=== PATIENT | male | born 1955 | race Caucasian/White ===

== ENCOUNTER 2023-06-21 14:31 | Outpatient (OUT) | payer SELFPAY | END 2023-06-21 14:32 | disposition home or self-care (01) | LOC: PST 14:31 | PROVIDERS: Visit Provider Urology | DX: Z01.818 Encounter for other preprocedural examination (principal); R97.20 Elevated prostate specific antigen [PSA] ==

== ENCOUNTER 2023-06-22 11:59 | Day surgery (SDC) | payer OTHER, SELFPAY ==
[2023-06-22] MEDS: LIDOCAINE 2% JELLY 20 ML UR (12:58)
[2023-06-22 13:01] VITALS: BP 112/66; PULSE 60; RESP 16; O2SAT 98
[2023-06-22] MEDS: LIDOCAINE HCL 1% PF 20 MG/2 ML VIAL 20 ML INJ (13:02)
[2023-06-22] MEDS: BACITRACIN OINTMENT 28.4 GM TUBE 1 APPLIC TOPICAL (13:07)
[2023-06-22 13:14] VITALS: BP 122/73; PULSE 69; RESP 18; O2SAT 98
--- NOTE | 2023-06-22 13:25 | PM.URSON ---
Urology Surgery Operative Note Operative Note Procedure Date: 06/22/23 Time Out Performed: yes Pre-op Diagnosis: 1. Elevated PSA 2. Atypical small acinar proliferation Post-op Diagnosis: same as pre-op Procedures performed: 1. Ultrasound for needle prostate biopsy, transperineal approach 2. Transrectal ultrasound of prostate and seminal vesicles 3. Nerve block of prostate Anesthesia: local Primary Surgeon: Sera Kennedy Complications: none Estimated blood loss (mL): 1 Findings: Left anterior medial hypoechoic area (4 core needle biopsies). Left posterior medial (6 core needle bx, 3 were shorter). JOE benign, mildly enlarged, non tender, no nodules. Left mid gland small cyst Large intravesical median lobe, SV wnl. Specimens: 1. Right posterior medial (2 cores) 2. Right posterior lateral (2 cores) 3. Right base (2 cores) 4. Right anterior lateral (2 cores) 5. Right anterior medial (2 cores) 6. Left anterior medial (4 cores) 7. Left anterior lateral (2 cores) 8. Left base (2 cores) 9. Left posterior lateral (2 cores) 10. Left posterior medial (6 cores- 3 short) Indications for Procedures: 68 year old male with history of elevated PSA 6.3, 18% free on 04/12/23, PSA density 0.11. MP-MRI prostate 05/24/23 showed prior prostatitis, no concerning lesions. Prostate volume 59 ml. Prior TRUS prostate biopsy by Dr. Rodriguez 08/20/21 showed LANETTE x1 core, LLM. After discussion of risks/benefits of management options and biopsy approaches, he elected to proceed with transperineal prostate biopsy under local. Risks were discussed to include but not limited to bleeding, pain, infection, damage to surrounding structures, hematuria, difficulty urinating, ecchymosis, swelling, injury from positioning, and need for additional procedures. Detailed description of Procedure: After informed consent was obtained, the patient was brought to the operating suite and transferred onto the operating table in supine position. Sequential compression devices were placed on bilateral lower extremities. He received the appropriate dose of oral antibiotics. He was positioned in the dorsal lithotomy position with scrotum secured out of the perineum with tape, and the appropriate pressure points padded, prepped and draped in the usual fashion for this procedure. An operative timeout was performed confirming the patient's identity, procedure and safety checks. A digital rectal exam was performed noting findings as above. Lidocaine gel was inserted per rectum. A well lubricated biplane transrectal ultrasound probe was inserted into the rectum and the prostate was aligned. The gland was visualized fully in axial and sagittal views to allow for identification of anatomy and location of the urethra as noted in findings. The Precision Point device was placed on the ultrasound probe for transperineal approach. The skin followed by periprostatic local anesthetic was delivered, 20 cc total 1% lidocaine plain, for periprostatic block. Two biopsies were obtained in a systematic fashion from 10 regions of the prostate including the medial and lateral aspects of the anterior and posterior prostate, as well as base of the right and left lobes. Additional biopsies were taken from prior LANETTE region. The ultrasound probe was removed and the perineum was cleaned, pressure applied achieving adequate hemostasis and dressed with antibiotic ointment, fluffs and scrotal support. The patient tolerated the procedure well and was sent to PACU in stable condition. Plan: Void prior to discharge home. Follow up in 1-2 weeks for pathology review. Other Provider present: No Post Operative care instructions: see dc instructions Attending Doc Confirm Attending Attestation: Yes
--- NOTE | 2023-06-22 13:39 | PC.NURSE ---
pt voids without difficulty at 1330.
--- OUTSIDE RECORDS SUMMARY | 2023-08-02 14:09 | XMS_ITS | CCD ---
Author Name Unknown Address [address] [place] [address] Organization [facility] Care Team Providers Care Healthcare Financial Analyst Name Role Phone TRUNG CARLIN Primary Care Physician [phone] Trung Carlin Primary Care Unavailable Sera Kennedy Attending Unavailable Sera Kennedy Admitting Unavailable Sera Kennedy Attending Unavailable Sera Kennedy Attending Unavailable Sera Kennedy Attending Unavailable Sera Kennedy Attending Unavailable Pedro Pablo REIS Attending Unavailable Trung Carlin Attending Unavailable Trung Carlin Primary Care Unavailable Trung Carlin Primary Care Unavailable Sera Kennedy MD Admitting Unavailable Sera Kennedy MD Attending Unavailable Allergies Allergy Classification Reported Allergen(s) Allergy Type Date of Onset Reaction(s) Facility (1 source) Unable to Assess Drug allergy (disorder) [address] [place] [address] Repository (2 sources) No Known Medication Allergies; Translations: [No Known Medication Allergies] Propensity to adverse reactions (disorder) [facility] Repository Medications Current Medications Medication Drug Class(es) Dates Sig (Normalized) Sig (Original) aspirin 81 mg oral capsule (2 sources) Platelet Aggregation Inhibitor, Nonsteroidal Anti-inflammatory Drug Start: 06-29-2021 take 1 mg by mouth every four hours aspirin 81 mg oral capsule mg cap(s), Oral, q4hr, Refills(s) 0 Start Date: 06/29/21 Status: Ordered atorvastatin 40 mg oral tablet (2 sources) HMG-CoA Reductase Inhibitor Start: 06-29-2021 take 1 mg by mouth once daily atorvastatin 40 mg Tab mg tab(s), Oral, Daily, Refills(s) 0 Start Date: 06/29/21 Status: Ordered carvedilol 6.25 mg oral tablet (2 sources) alpha-Adrenergic Wong, beta-Adrenergic Wong Start: 06-29-2021 take 1 mg by mouth twice daily carvedilol 6.25 mg Tab mg tab(s), Oral, BID, Refills(s) 0 Start Date: 06/29/21 Status: Ordered cephalexin 500 mg oral capsule (1 source) Cephalosporin Antibacterial Start: 04-15-2023 End: 04-18-2023 take 1 capsule by mouth every twelve hours Keflex 500 mg oral capsule 500 mg = 1 cap(s), Oral, q12hr, Start day before procedure, X 3 day(s), # 6 cap(s), Refills(s) 0, Pharmacy: [id number], 184, cm, 04/15/23 15:44:00 EDT, Height/Length Dosing, 69.3, kg, 04/15/23 15:44:00 EDT, Weight Dosing Start Date: 04/15/23 Stop Date: 04/18/23 Status: Ordered diazePAM 10 mg oral tablet (1 source) Benzodiazepine Start: 04-15-2023 Valium 10 mg Tab 10 mg = 1 tab(s), Oral, Once, Take 30 minutes to 1 hour prior to procedure, # 1 tab(s), Refills(s) 0, Pharmacy: [facility], 184, cm, 04/15/23 15:44:00 EDT, Height/Length Dosing, 69.3, kg, 04/15/23 15:44:00 EDT, Weight Dosing Start Date: 04/15/23 Status: Ordered lisinopril 10 mg oral tablet (2 sources) Angiotensin Converting Enzyme Inhibitor Start: 06-29-2021 take 1 mg by mouth once daily lisinopril 10 mg Tab mg tab(s), Oral, Daily, Refills(s) 0 Start Date: 06/29/21 Status: Ordered Problems Problem Classification Problem Date Documented Date Episodic/Chronic Cancer of prostate (2 sources) Malignant neoplasm of prostate; Translations: [Malignant tumor of prostate] Onset: 07-01-2023 Chronic Coronary atherosclerosis and other heart disease (2 sources) Coronary arteriosclerosis 06-29-2021 Chronic Disorders of lipid metabolism (2 sources) Hyperlipidemia 06-29-2021 Chronic Essential hypertension (2 sources) Hypertensive disorder 06-29-2021 Chronic Hyperplasia of prostate (4 sources) Benign prostatic hypertrophy without outflow obstruction; Translations: [Benign prostatic hyperplasia without lower urinary tract symptoms] Onset: 04-14-2023 Chronic Other screening for suspected conditions (not mental disorders or infectious disease) (4 sources) Raised prostate specific antigen; Translations: [Elevated prostate specific antigen [PSA]] Onset: 04-14-2023 Episodic Results Test Name Value Interpretation Reference Range Facil ity Lab Reportson 07-19-2023 Lab Reports [id number]#1.00T IFF [facility] Formson 07-04-2023 Forms [id number]#1.00TI FF [facility] Pathology Noteon 07-04-2023 Pathology Note [id number]#1.0 0TIFF [facility] Screenson 07-04-2023 Screens [id number] IFF [facility] Screens [id number] IFF Normal [facility] Ambulatory Visit Summaryon 1 08-31-2022 Ambulatory Visit Summary ARSH MARIE :1955 Visit Date:07/01/2023 Ambulatory Visit Instructions Your Diagnosis Prostate cancer BPH (benign prostatic hyperplasia) Tests Performed Urnls Dip Stick Auto w/o Microscopy POC 14210 Your Care Team Attending Physician - Brent CROWELL, Sera Zhang Primary Care Physician - TRUNG CARLIN DO This Is Your Medications List diazepam (Valium 10 mg Tab) Contact prescribing physician if questions or concerns aspirin (aspirin 81 mg oral capsule) atorvastatin (atorvastatin 40 mg Tab) carvedilol (carvedilol 6.25 mg Tab) lisinopril (lisinopril 10 mg Tab) Procedures Performed Transperineal needle biopsy of prostate (06/22/2023), Transrectal biopsy of prostate using ultrasound (US) guidance (08/20/2021), Back, Placement of stent in cardiac conduit. Discharge Vitals Blood Pressure 118/78 Height 184 cm Height 72 in Weight 73.2 kg Weight 161.04 lb BMI 21.62 What to do next You Need to Schedule the Following Appointments Follow Up with Brent CROWELL, Sera Zhang, [place], URO When: In 7 months Comments: w/PSA Where: Medications What How Much When Instructions Unchanged diazepam (Valium 10 mg Tab) 1 Tablets By Mouth Once Take 30 minutes to 1 hour prior to procedure Unchanged aspirin (aspirin 81 mg oral capsule) By Mouth Every 4 hours Contact prescribing physician if questions or concerns Unchanged atorvastatin (atorvastatin 40 mg Tab) By Mouth Every day Contact prescribing physician if questions or concerns Unchanged carvedilol (carvedilol 6.25 mg Tab) By Mouth 2 times a day Contact prescribing physician if questions or concerns Unchanged lisinopril (lisinopril 10 mg Tab) By Mouth Every day Contact prescribing physician if questions or concerns Test Results Urnls Dip Stick Auto w/o Microscopy POC 84009 (07/01/2023) Bilirubin Urine Dipstick - Negative Blood Urine Dipstick - 2+ Moderate Glucose Urine Dipstick - Negative Ketones Urine Dipstick - Negative Leukocytes Urine Dipstick - Negative Nitrite Urine Dipstick - Negative Protein Urine Dipstick - Negative Specific [place] Urine Dipstick - 1.025 Urine Appearance Urine Dipstick - Clear Urine Color Urine Dipstick - Light yellow Urobilinogen Urine Dipstick - Normal 0.2-1 EU/dl pH Urine Dipstick - 5.5 Allergies No Known Allergies No Known Medication Allergies Problems Ongoing - Any problem that you are currently receiving treatment for. BPH (benign prostatic hyperplasia) CAD (coronary artery disease) Elevated PSA Hyperlipidemia Hypertension Prostate cancer Patient Survey You may receive a survey via text or e-mail asking about your office visit. Please share your experience with us by completing your survey. We appreciate your feedback and thank you for choosing us for your care. Normal [facility] Urology Office/Clinic Noteon 07-01-2023 Urology Office/Clinic Note Chief Complai nt S/p to MRI and Path notes HPI Staff Follow up to Transperineal Bx done 06/22/23, review pathology report. MRI of prostate done 05/24/23. Previous DX: BPH, elevated PSA. TRUS/Bx 08/20/21 - LANETTE x 1 core. Inflammation x 1 core. IPSS 15 JOHANN 22 Dysuria: denies Incomplete bladder emptying: denies Hematuria: (Moderate on U/A today) occasionally 1-2 times daily since bx. Yesterday afternoon was the last time he seen Frequency: 12-18 times daily Urgency: denies Nocturia: 1-2 times nightly Stream: denies hesitation, normal stream Leaking: denies Post void dripping: a little bit Wearing pads/ Depends: denies Urge incontinence: denies Stress incontinence: denies Incontinence without Sensory Awareness: denies Abdominal pain: denies Flank pain: denies Sexual complaints: denies History of Present Illness Tests reviewed: reviewed UA and Path Report. I have reviewed the previous health record information and history for this patient from . I have reviewed and verified the staff HPI to be accurate for this encounter. There have been no associated fever, chills, flank pain. Denies any urinary infections since last encounter. Review of Systems PHQ Score Initial Depression Screen Score: 0 SCORE ROS - Provider Constitutional: denies weight loss, denies hot flashes. Eyes: denies eye problems. Gastrointestinal: denies nausea, denies vomiting. Cardiovascular: denies chest pain or angina. Integumentary: no dryness Musculoskeletal: denies musculoskeletal symptoms. ENMT: denies otolaryngeal symptoms. Respiratory: no shortness of breath. Heme/Lymph: denies easy bleeding tendency, denies easy bruising tendency. Psychiatric: no confusion, no anxiety. Genitourinary: See HPI. Physical Exam Vitals & Measurements BP: 118/78 HT: 72 in HT: 184 cm WT: 73.2 kg WT: 161.04 lb BMI: 21.62 General Appearance: alert, no distress, well nourished, well developed male. Assessment/Plan Prior Dr. Rodriguez pt with history of elevated PSA here for follow-up after prostate biopsy Pt ladd in [place] after 07/15/23. No longer takes BTs. States he had heart blockage with 2 stent placements 2017. JOHANN 22(21) 1. Prostate cancer (C61: Malignant neoplasm of prostate) PSA: 12/03/20 - 5.6 06/22/21 - 5.3 & 13% 06/29/22 - 3.8 04/12/23 - 6.3 & 18% S/p TRUS/Bx 08/20/21 - LANETTE x 1 core LLM. Inflammation x 1 core. MRI Prostate 05/24/23 - Prostate Volume: 59mL, negative for lesions, prior prostatitis S/p TP Prostate Bx 06/22/23 - Path shows small focus of adenocarcinoma of prostate, GS6(3+3), GG1, 5% involvement, 1/25 cores (additional cores taken due to prior LANETTE, area negative) The pathology report, which shows the presence of prostate cancer, was disclosed to the patient in detail today. I discussed the options for treatment of prostate cancer with the patient that include: active surveillance, radiation therapy (both external beam and seed implant), cryotherapy, HIFU and radical prostatectomy (both traditional and robotic). We discussed each treatment and it's appropriateness to his condition. The short-term and long-term outcome, risk, and complications were discussed. I explained to the patient that active surveillance is recommended by both AUA and EAU guidelines for very low risk and most low risk patients. The criteria most often published include: Kendal 6, when specified < 2-3 positive cores with < 50% cancer involvement in every positive core, a clinical T1c or T2a, a PSA < 10 ng/mL and a PSA density < 0.15 ng/mL/cc. Low volume Leonard 7 (3 + 4) (< 10% pattern 4) may also be considered for . However, recent findings suggest that any grade 4 pattern is associated with a three-fold increased risk of metastases compared to Kendal 6, while a PSA up to 20 ng/mL might be an acceptable threshold Regarding Active Surveillance Protocol I discussed AUA guidelines which recommend: -A confirmatory biopsy within the initial two years and surveillance biopsies thereafter -MRI can be used to in active surveillance protocol, however no standardized regimen has been established. -Definitive treatment to localized prostate cancer patients undergoing active surveillance who develop adverse reclassification Discussed sending biopsy for decipher if active surveillance. Patient elects to proceed Follow up in 7 mos w/PSA. All questions/concerns were discussed. Pt to call the office if he encounters any issues prior. Pt acknowledges understanding. -Will send tissue for decipher testing. Advised pt to call our office if his insurance does not cover the testing. -Will order PSA F/T to be done just prior to follow-up 2. BPH (benign prostatic hyperplasia) (N40.0: Benign prostatic hyperplasia without lower urinary tract symptoms) UA today negative for blood and infection. IPSS 15(15). Not taking any BPH meds. CC: urgency. Nocturia 1x/night, not bothersome. Educated pt on risks of infrequent voiding, overall bladd (more content not included)... Normal [facility] Comment on above: Result Comment: Elec tronically Signed By: Brent CROWELL, Sera Zhang\.br\Date and Time Signed: 07/01/23 13:17 EST\.br\Electronically Co-Signed By: Richelle Novoa\.br\Date and Time Co-Signed: 07/01/23 11:52 EST Operative Reporton 3 Operative Report [id number]#1.00TIFF Normal [facility] MR prostate wo/w conon 05-25 MR prostate wo/w con [facility] [place] [address] MRI Report Signed Patient: Arsh Marie MR#: [id number] : 1955 Acct:[id number] Age/Sex: 68 / M ADM Date: 05/24/23 Loc: Room: Type: [facility] Attending Dr: Sera Kennedy MD Copies to: Sera Kennedy MD Ordering Provider: Sera Kennedy MD Date of Service: 05/24/23 MR/MR prostate wo/w con: R97.20 EXAMINATION: MR prostate wo/w con HISTORY: Elevated PSA COMPARISON: NONE TECHNIQUE: Multiparametric imaging of the prostate gland was performed with IV contrast. FINDINGS: Suboptimal evaluation due to motion. Prostate Dimensions: 4.3 x 4.4 x 6.0 cm. Prostate Volume: 59 mL Peripheral Zone: Heterogenous inT2 signal suggestive of prior prostatitis. No suspicious T2 or ADC map abnormality is identified to suggest prostate malignancy. Central/Transitional Zone: BPH changes. Seminal Vesicles: Unremarkable Neurovascular bundles: Unremarkable. Lymphadenopathy: No evidence of lymphadenopathy. Bladder: No focal lesion. Bowel: The visualized bowel is without acute abnormality. Peritoneal Cavity: No free fluid. Bones: No suspicious bony lesion. MR/MR prostate wo/w con IMPRESSION: No definitive MRI evidence of prostate malignancy. BPH changes. Impression dictated by: Jake Isaacs Jr., DBryceOBryce05/25/2023 11:05 AM Dictation Location: [facility]--08 Transcribed By: [facility] 05/25/231104 Dictated By: Jake Isaacs Jr, DO 05/25/231100 Signed By: 05/25/23 110 [facility] RAD - MRI Reporton RAD - MRI Report [id number] Normal [facility] ISTAT XRay CREon 05-24-2023 Creatinine [Mass/Vol] 0.8 mg/dL Normal 0.6-1.3 [facility] Comment on above: Result Comment: ER/E SD physician is notified/shown all ISTAT results. Critical values may be confirmed by laboratory testing if deemed necessary by ER attending doctor. Performed By: #### I SCRE #### [facility] [address] [place] [address] ISTAT GFR > 60.0 [facility] Comment on above: Result Comment: PERF ORMED BY: [place] [address] PATHOLOGIST PRODUCT FINISHER CARISSA RIGGS M.D. Performed By: #### I SCRE #### [facility] [address] [place] [address] Outside Recordson 04-25-2023 Outside Records [id number] [facility] Lab Reportson 04-22-2023 Lab Reports [id number]#1.00C D:127 [facility] Coding Summaryon 04-21-2023 Coding Summary HTMLBase 64 [id number] [file] ZTo (more content not included)... Normal [facility] Screenson 04-19-2023 Screens [id number]#1.00CD :[address] [facility] Screens [id number]#1.00CD :[address] [facility] Ambulatory Visit Summaryon 0 04-15-2023 Ambulatory Visit Summary ARSH MARIE :1955 Visit Date:04/15/2023 Ambulatory Visit Instructions Your Diagnosis Elevated PSA BPH (benign prostatic hyperplasia) Tests Performed Urnls Dip Stick Auto w/o Microscopy POC 58759 MRI Pelvis (Soft Tissue) w/ + w/o contrast -- Results Pending -- Please visit your patient portal for your results or contact your primary care physician. Your Care Team Attending Physician - Sera Kennedy MD Primary Care Physician - TRUNG CARLIN DO This Is Your Medications List Contact prescribing physician if questions or concerns aspirin (aspirin 81 mg oral capsule) atorvastatin (atorvastatin 40 mg Tab) carvedilol (carvedilol 6.25 mg Tab) lisinopril (lisinopril 10 mg Tab) Procedures Performed Transrectal biopsy of prostate using ultrasound (US) guidance (08/20/2021), Back, Placement of stent in cardiac conduit. Discharge Vitals Temperature (Temporal Artery) 37.0 ?C Heart Rate (Peripheral) 84 Blood Pressure 124/78 Height 184 cm Height 72 in Weight 69.3 kg Weight 152.46 lb BMI 20.47 What to do next You Need to Schedule the Following Appointments Follow Up with Sera Kennedy MD, URL, URO When: Where: Medications What How Much When Instructions Unchanged aspirin (aspirin 81 mg oral capsule) Every 4 hours Contact prescribing physician if questions or concerns Unchanged atorvastatin (atorvastatin 40 mg Tab) Every day Contact prescribing physician if questions or concerns Unchanged carvedilol (carvedilol 6.25 mg Tab) 2 times a day Contact prescribing physician if questions or concerns Unchanged lisinopril (lisinopril 10 mg Tab) Every day Contact prescribing physician if questions or concerns Test Results Urnls Dip Stick Auto w/o Microscopy POC 92516 (04/15/2023) Bilirubin Urine Dipstick - Negative Blood Urine Dipstick - Negative Glucose Urine Dipstick - Negative Ketones Urine Dipstick - Negative Leukocytes Urine Dipstick - Negative Nitrite Urine Dipstick - Negative Protein Urine Dipstick - Negative Specific [place] Urine Dipstick - 1.025 Urine Color Urine Dipstick - Yellow Urobilinogen Urine Dipstick - Normal 0.2-1 EU/dl pH Urine Dipstick - 6 Allergies No Known Medication Allergies Problems Ongoing - Any problem that you are currently receiving treatment for. BPH (benign prostatic hyperplasia) CAD (coronary artery disease) Elevated PSA Hyperlipidemia Hypertension Education Materials Transrectal Ultrasound-Guided Prostate Biopsy, Care After The following information offers guidance on how to care for yourself after your procedure. Your health care provider may also give you more specific instructions. If you have problems or questions, contact your health care provider. What can I expect after the procedure? After the procedure, it is common to have: ? Pain and discomfort near your rectum, especially while sitting. ? Lowrey-colored urine due to small amounts of blood in your urine. ? A burning feeling while urinating. ? Blood in your stool (feces) or bleeding from your rectum. ? Blood in your semen. Follow these instructions at home: Medicines ? Take pxub-mmc-atbalji and prescription medicines only as told by your health care provider. ? If you were given a sedative during your procedure, it can affect you for several hours. Do not drive or operate machinery until your health care provider says that it is safe. ? If you were prescribed an antibiotic medicine, take it as told by your health care provider. Do not stop using the antibiotic even if you start to feel better. Activity ? Return to your normal activities as told by your health care provider. Ask your health care provider what activities are safe for you. ? Ask your health care provider when it is okay for you to resume sexual activity. ? You may have to avoid lifting. Ask your health care provider how much you can safely lift. General instructions ? Drink enough fluid to keep your urine pale yellow. ? Watch your urine, stool, and semen for new or increased bleeding. ? Keep all follow-up visits. This is important. Contact a health care provider if: ? You have any of the following: ? Blood clots in your urine or stool. ? Blood in your urine more than 2 weeks after the procedure. ? Blood in your semen more than 2 months after the procedure. ? New or increased bleeding in your urine, stool, or semen. ? Severe pain in your abdomen. ? Your urine smells bad or unusual. ? You have trouble urinating. ? Your lower abdomen feels firm. ? You have problems getting an erection. ? You have nausea or you vomit. Get help right away if: ? You have a fever or chills. This could be a sign of infection. ? You have bright red urine. ? You have severe pain that does not get better with medicine. ? You cannot urinate. Summa (more content not included)... Normal [facility] Patient Educationon 04-15-20 Patient Education Oncology Transrectal Ultrasound-Guided Prostate Biopsy, Care After The following information offers guidance on how to care for yourself after your procedure. Your health care provider may also give you more specific instructions. If you have problems or questions, contact your health care provider. What can I expect after the procedure? After the procedure, it is common to have: ? Pain and discomfort near your rectum, especially while sitting. ? Lowrey-colored urine due to small amounts of blood in your urine. ? A burning feeling while urinating. ? Blood in your stool (feces) or bleeding from your rectum. ? Blood in your semen. Follow these instructions at home: Medicines ? Take qxsw-stz-yvblrpl and prescription medicines only as told by your health care provider. ? If you were given a sedative during your procedure, it can affect you for several hours. Do not drive or operate machinery until your health care provider says that it is safe. ? If you were prescribed an antibiotic medicine, take it as told by your health care provider. Do not stop using the antibiotic even if you start to feel better. Activity ? Return to your normal activities as told by your health care provider. Ask your health care provider what activities are safe for you. ? Ask your health care provider when it is okay for you to resume sexual activity. ? You may have to avoid lifting. Ask your health care provider how much you can safely lift. General instructions ? Drink enough fluid to keep your urine pale yellow. ? Watch your urine, stool, and semen for new or increased bleeding. ? Keep all follow-up visits. This is important. Contact a health care provider if: ? You have any of the following: ? Blood clots in your urine or stool. ? Blood in your urine more than 2 weeks after the procedure. ? Blood in your semen more than 2 months after the procedure. ? New or increased bleeding in your urine, stool, or semen. ? Severe pain in your abdomen. ? Your urine smells bad or unusual. ? You have trouble urinating. ? Your lower abdomen feels firm. ? You have problems getting an erection. ? You have nausea or you vomit. Get help right away if: ? You have a fever or chills. This could be a sign of infection. ? You have bright red urine. ? You have severe pain that does not get better with medicine. ? You cannot urinate. Summary ? After this procedure, it is common to have pain and discomfort around your rectum, especially while sitting. ? You may have blood in your urine and stool after the procedure. ? It is common to have blood in your semen after this procedure. ? Get help right away if you have a fever or chills. This could be a sign of infection. This information is not intended to replace advice given to you by your health care provider. Make sure you discuss any questions you have with your health care provider. Document Revised: 01/25/2022 Document Reviewed: 01/25/2022 [employer] Patient Education ? 2022 [employer] Transrectal Ultrasound-Guided Prostate Biopsy A transrectal ultrasound-guided prostate biopsy is a procedure to remove samples of prostate tissue for testing. The prostate is a walnut-sized gland that is located below the bladder and in front of the rectum. During this procedure, a small device (probe) is lubricated and put inside the rectum. The probe sends out sound waves that make a picture of the prostate and surrounding tissues (transrectal ultrasound). The images are used to help guide the process of removing the samples. The samples are taken to a lab to be checked for prostate cancer. This procedure is usually done to evaluate the prostate gland of men who have raised (elevated) levels of prostate-specific antigen (PSA), which can be a sign of prostate cancer or prostate enlargement related to aging (benign prostatic hyperplasia, or BPH). Tell a health care provider about: ? Any allergies you have. ? All medicines you are taking, including vitamins, herbs, eye drops, creams, and tzsm-kxx-tadiaxb medicines. ? Any problems you or family members have had with anesthetic medicines. ? Any bleeding problems you have. ? Any surgeries you have had. ? Any medical conditions you have. ? Any prostate infections you have had. What are the risks? Generally, this is a safe procedure. However, problems may occur, including: ? Prostate infection. ? Bleeding from the rectum. ? Blood in the urine. ? Allergic reactions to medicines. ? Damage to surrounding structures such as blood vessels, organs, or muscles. ? Difficulty passing urine. ? Nerve damage. This is usually temporary. What happens before the procedure? Medicines Ask your health care provider about: ? Changing or stopping your regular medicines. This is especially important if you are taking diabetes medicines or blood thinners. ? Taking medicines such as aspirin (more content not included)... Normal Mark Ti [facility] Urology Office/Clinic Noteon 04-15-2023 Urology Office/Clinic Note Chief Complai nt 3 month F/U HPI Staff Pt is here today for follow up visit w/ PSA. Former DLS Pt. Previous PSA 5.3 and 13.4% done 06/22/21. Previous DX: BPH, elevated PSA. TRUS/Bx 08/20/21 - LANETTE x 1 core. Inflammation x 1 core. PSA: 12/03/20 - 5.6 06/22/21 - 5.3 & 13% 06/29/22 - 3.8 04/12/23 - 6.3 & 18% IPSS Dysuria: _denies Incomplete bladder emptying: denies Hematuria: denies visible blood Frequency: every hour and half to 2 hours Urgency: _denies Nocturia: _once a night Stream: _denies hesitation, weak stream Leaking: _denies Post void dripping: _sometimes Wearing pads/ Depends: _denies Urge incontinence: _denies Stress incontinence: _denies Incontinence without Sensory Awareness: _denies Abdominal pain: _denies Flank pain: denies Sexual complaints: _denies History of Present Illness Tests reviewed: reviewed UA, PSA. I have reviewed the previous health record information and history for this patient from Dr. Rodriguez. I have reviewed and verified the staff HPI to be accurate for this encounter. There have been no associated fever, chills, flank pain, or blood in the urine. Denies any urinary infections since last encounter. Review of Systems PHQ Score Initial Depression Screen Score: 0 ROS - Provider Constitutional: denies weight loss, denies hot flashes. Eyes: denies eye problems. Gastrointestinal: denies nausea, denies vomiting. Cardiovascular: denies chest pain or angina. Integumentary: no dryness Musculoskeletal: denies musculoskeletal symptoms. ENMT: denies otolaryngeal symptoms. Respiratory: no shortness of breath. Heme/Lymph: denies easy bleeding tendency, denies easy bruising tendency. Psychiatric: no confusion, no anxiety. Genitourinary: See HPI. Physical Exam Vitals & Measurements T: 37.0 ?C(Temporal Artery) HR: 84(Peripheral) BP: 124/78 HT: 72 in HT: 184 cm WT: 69.3 kg WT: 152.46 lb BMI: 20.47 General Appearance: alert, no distress, well nourished, well developed male. Genitourinary: Flank Pain: none. Bladder: nonpalpable. Assessment/Plan Prior Dr. Rodriguez pt. Pt julee in [place] after 07/15/23. JOHANN 21. No longer takes BTs. States he had heart blockage with 2 stent placements 2017. 1. Elevated PSA (R97.20: Elevated prostate specific antigen [PSA]) PSA: 12/03/20 - 5.6 06/22/21 - 5.3 & 13% 06/29/22 - 3.8 04/12/23 - 6.3 & 18% TRUS/Bx 08/20/21 - LANETTE x 1 core LLM. Inflammation x 1 core. PSA increased from prior but has been as high as 5.6 in the past. No worsening urinary sx. Does bicycle 10 miles per day. Discussed prostate ca workup including MRI leading to possible fusion TP bx vs standard TP bx given hx of LANETTE and no repeat biopsy since. We discussed risks of MRI fusion prostate biopsy approaches including transrectal and transperineal. Risks of the procedure were discussed to include but not be limited to bleeding, pain, infection (higher, including sepsis with transrectal approach), difficulties with urination, injury to the urethra, prostate or bladder or surrounding tissues, injury from positioning on the table, swelling and bruising of the skin, and need for further procedures. -Obtain MP MRI prostate -Will call pt with MRI results and schedule transperineal prostate biopsy under local anesthesia +/- MRI fusion based on results. Pt understands and agrees with plan. -Periprocedure meds sent: abx and valium. Risk and benefits discussed The procedural risks, benefits, details, and treatment alternatives have been discussed with the patient. These include minimal to severe bleeding, infection, blood in the semen, inability to urinate, and severe infection requiring hospitalization and IV antibiotics, among others. Full informed consent has been obtained. Will order Local anesthesia. 2. BPH (benign prostatic hyperplasia) (N40.0: Benign prostatic hyperplasia without lower urinary tract symptoms) UA today negative for blood and infection. IPSS 15. Not taking any BPH meds. CC: urgency. Nocturia 1x/night, not bothersome. Educated pt on risks of infrequent voiding, overall bladder pathophysiology. Patient declines trying medications at this time. -Start timed voids q2-3hr. I spent 40 minutes today with the patient: reviewing tests in preparation to see and discuss them with the patient, obtaining and reviewing separately obtained history, documenting clinical information in the electronic health records, and care coordination. Time was spent performing a medical exam and evaluation, counseling and educating the patient, and ordering medications, tests, and procedures in caring for the patient. Follow-up With When Contact Information Sera Kennedy MD, URL, URO Additional Instructions: schedule MRI and prostate bx Patient Education Transrectal Ultrasound-Guided Prostate Biopsy, Care After Transrectal Ultrasound-Guided Prostate Biopsy IYadi, personally scribed for Dr. Kennedy on 04/15/2023 16:23:57. Electronically si (more content not included)... Normal Mark [facility] Comment on above: Result Comment: Elec tronically Signed By: Sera Kennedy MD\.br\Date and Time Signed: 04/15/23 17:51 EDT\.br\Electronically Co-Signed By: Yadi Mcneill\.br\Date and Time Co-Signed: 04/15/23 16:24 EDT\.br\Electronically Co-Signed By: Yadi Mcneill\.br\Date and Time Co-Signed: 04/15/23 16:26 EDT\.br\Electronically Co-Signed By: Mcneill, Yadi P\.br\Date and Time Co-Signed: 04/15/23 16:27 EDT\.br\Electronically Co-Signed By: Yadi Mcneill P\.br\Date and Time Co-Signed: 04/15/23 16:28 EDT PSA Total+% Free (Serial) LC on 04-13-2023 % Free PSA 18.3 % Invalid Interpretation Code [facility] Comment on above: Result Comment: The table below lists the probability of prostate cancer for men with non-suspicious JOE results and total PSA between 4 and 10 ng/mL, by patient age (Nba et al, LC 1998, 279:1542). % Free PSA 50-64 yr 65-75 yr 0.00-10.00% 56% 55% 10.01-15.00% 24% 35% 15.01-20.00% 17% 23% 20.01-25.00% 10% 20% >25.00% 5% 9% Please note: Nba et al did not make specific recommendations regarding the use of percent free PSA for any other population of men. Performed At: [facility] [id number] Jacinto Mac PhD Ph:[phone] Performed By: #### [id number] #### [facility] (DEFAULT) [address] [place] [id number] Prostate Specific Ag, Serum LC 6.3 ng/mL High 0.0-4 .0 [facility] Comment on above: Result Comment: [employer] de[employer] methodology. According to the [employer] [employer], Serum PSA should decrease and remain at undetectable levels after radical prostatectomy. The AUA defines biochemical recurrence as an initial PSA value 0.2 ng/mL or greater followed by a subsequent confirmatory PSA value 0.2 ng/mL or greater. Values obtained with different assay methods or kits cannot be used interchangeably. Results cannot be interpreted as absolute evidence of the presence or absence of malignant disease. Performed By: #### 3 [id number] #### [facility] (DEFAULT) [address] [place] [address] PSA, Free LC 1.15 ng/mL Invalid Interpretation Code N/A [facility] Comment on above: Result Comment: [employer]wey ECLIA methodology. Performed By: #### [id number] #### [facility] (DEFAULT) [address] [place] [address] Provider Orderson 04-12-2023 Provider Orders [id number] [facility] Provider Letteron 09-03-2022 Provider Letter (Inserted Image. Aminata ble to display) September 03, 2022 ARSH MARIE [address] [place] [address] ARSH MARIE 1955 Dear Arsh, We had called you and discussed your visit that you had scheduled with Dr. Pablo Rodriguez on September 13, 2022 which will need to be rescheduled since he will be out of the office. We understand you prefer not to see an PA for your follow-up visit, and so we ask that you still reschedule this visit and be rescheduled with one of our M.D.'s for the next visit, then if you need another visit after that, we can schedule with your regular physician when he becomes available, this helps to keep your healthcare up to date with any needs for the present. Please contact the office at the number listed below to get this appointment rescheduled at your earliest convenience. Thank you for your prompt attention to this matter. Call [phone] x [phone]. Sincerely, [facility] [address] [place] [address] [facility] Vital Signs Date Time Vital Sign Value Performing Clinician Radha herrera 07-01-2023 11:01-0500 Blood Pressure Location Seratrent Kennedy [facility] 07-01-2023 11:01-0500 Diastolic blood pressure 78 mm[Hg] Sera Lue [facility] 07-01-2023 11:01-0500 Systolic blood pressure 118 mm[Hg] Sera Schillinge [facility] 04-15-2023 15:36-0400 Blood Pressure Location Sera Lue [facility] 04-15-2023 15:36-0400 Body temperature 98.6 [degF] Sera Lue [facility] 04-15-2023 15:36-0400 Diastolic blood pressure 78 mm[Hg] Sera Lue [facility] 04-15-2023 15:36-0400 Heart rate 84 /min Sera Lue [facility] 04-15-2023 15:36-0400 Systolic blood pressure 124 mm[Hg] Sera Lue [facility] Encounters Encounter Date Encounter Type Care Provider Facility Start: 02-03-2024 ambulatory Sera M. Lue Facility:[facility] Start: 07-25-2023 End: 07-26-2023 ambulatory Trung Carlin Facility:[facility] Start: 07-01-2023 End: 07-02-2023 ambulatory Sera M. Lue Facility:[facility] Start: 07-01-2023 End: 07-01-2023 Patient encounter procedure Sera M. Lue [facility] Start: 06-22-2023 End: 06-23-2023 ambulatory Sera M. Lue Facility:[id number] Start: 05-24-2023 End: 05-24-2023 ambulatory Trung Carlin Facility:[facility] Start: 04-15-2023 End: 04-16-2023 ambulatory Sera M. Lue [facility] Start: 04-15-2023 End: 04-15-2023 Patient encounter procedure Sera M. Lue [facility] Start: 04-12-2023 End: 04-13-2023 ambulatory Trung Carlin Facility:[facility] Start: 09-13-2022 ambulatory Pedro Pablo Wayne ty:[facility] Procedures Date Procedure Procedure Detail Performing Clinician Start: 06-22-2023 Transperineal needle biopsy of prostate Sera Lue Start: 08-20-2021 Transrectal biopsy o f prostate using ultrasound guidance Sera Lue Back structure, excl uding neck (body structure) Sera Lue Placement of stent i n cardiac conduit Sera Lue Immunizations Immunization Date Immunization Notes Care Provider [facility] 07-28-2022 SARS-CoV-2 (COVID-19 ) [id number] Sera Lue [facility] 06-23-2022 influenza virus vaccine, unspecified formulation Sera Lue [facility] 01-20-2022 SARS-CoV-2 (COVID-19 ) mRNA-1273 vaccine Sera Lue [facility] 07-01-2021 SARS-CoV-2 (COVID-19 ) mRNA-1273 vaccine Sera Lue [facility] 06-16-2021 influenza virus vaccine, unspecified formulation Sera Lue [facility] 11-26-2020 SARS-CoV-2 (COVID-19 ) mRNA-1273 vaccine Sera Lue [facility] 11-13-2020 SARS-CoV-2 (COVID-19 ) Ad26 vaccine, recombinant Sera Lue [facility] 10-29-2020 SARS-CoV-2 (COVID-19 ) mRNA-1273 vaccine Sera Lue [facility] 10-13-2020 SARS-CoV-2 (COVID-19 ) mRNA-1273 vaccine Sera Lue [facility] Payers Date Payer Category Payer Self-pay 2021 Unknown [id number] 1955 Unknown [id number] 2.16.8 [id number] 1955 Unknown [id number] 2.16.8 [id number] 1955 Unknown [id number] 2.16.8 [id number] 1955 Unknown [id number] 2.16.8 [id number] 1955 Unknown [id number] 2.16.8 [id number] 1955 Unknown [id number] 2.16.8 [id number] 1955 Unknown [id number] 2.16.8 [id number] Unknown [id number] 2.16.8 [id number] Social History Date Type Detail Facility Start: 04-15-2023 End: 07-01-2023 Tobacco smoking status Light tobacco smoker (finding) [facility] Sex Assigned At Male [facility] Functional Status Date Assessment Result Facility 07-01-2023 Functional Status N/A [facility] 04-15-2023 Functional Status N/A [facility] Hospital Discharge instructions 06-21-2023 Note Date & Type Note Facility 06-21-2023 Hospital Discharg e instructions Follow Up Care 06/21/2023 15:14:33 With:Brent CROWELL, Sera Zhang URL, URO Address: When:Within 7 Month(s) Comments:w/PSA [facility] Hospital Discharge instructions 04-15-2023 Note Date & Type Note Facility 04-15-2023 Hospital Discharg e instructions Patient Education 04/15/2023 16:23:18 Transrectal Ultrasound-Guided Prostate Biopsy, Care After Transrectal Ultrasound-Guided Prostate Biopsy, Care After The following information offers guidance on how to care for yourself after your procedure. Your health care provider may also give you more specific instructions. If you have problems or questions, contact your health care provider. What can I expect after the procedure? After the procedure, it is common to have: Pain and discomfort near your rectum, especially while sitting. Lowrey-colored urine due to small amounts of blood in your urine. A burning feeling while urinating. Blood in your stool (feces) or bleeding from your rectum. Blood in your semen. Follow these instructions at home: Medicines Take zgmu-cnp-fqswhmq and prescription medicines only as told by your health care provider. If you were given a sedative during your procedure, it can affect you for several hours. Do not drive or operate machinery until your health care provider says that it is safe. If you were prescribed an antibiotic medicine, take it as told by your health care provider. Do not stop using the antibiotic even if you start to feel better. Activity Return to your normal activities as told by your health care provider. Ask your health care provider what activities are safe for you. Ask your health care provider when it is okay for you to resume sexual activity. You may have to avoid lifting. Ask your health care provider how much you can safely lift. General instructions Drink enough fluid to keep your urine pale yellow. Watch your urine, stool, and semen for new or increased bleeding. Keep all follow-up visits. This is important. Contact a health care provider if: You have any of the following: ?Blood clots in your urine or stool. ?Blood in your urine more than 2 weeks after the procedure. ?Blood in your semen more than 2 months after the procedure. ?New or increased bleeding in your urine, stool, or semen. ?Severe pain in your abdomen. Your urine smells bad or unusual. You have trouble urinating. Your lower abdomen feels firm. You have problems getting an erection. You have nausea or you vomit. Get help right away if: You have a fever or chills. This could be a sign of infection. You have bright red urine. You have severe pain that does not get better with medicine. You cannot urinate. Summary After this procedure, it is common to have pain and discomfort around your rectum, especially while sitting. You may have blood in your urine and stool after the procedure. It is common to have blood in your semen after this procedure. Get help right away if you have a fever or chills. This could be a sign of infection. This information is not intended to replace advice given to you by your health care provider. Make sure you discuss any questions you have with your health care provider. Document Revised: 01/25/2022 Document Reviewed: 01/25/2022 [employer] Patient Education 2022 Protection Plus. 04/15/2023 16:23:17 Transrectal Ultrasound-Guided Prostate Biopsy Transrectal Ultrasound-Guided Prostate Biopsy A transrectal ultrasound-guided prostate biopsy is a procedure to remove samples of prostate tissue for testing. The prostate is a walnut-sized gland that is located below the bladder and in front of the rectum. During this procedure, a small device (probe) is lubricated and put inside the rectum. The probe sends out sound waves that make a picture of the prostate and surrounding tissues (transrectal ultrasound). The images are used to help guide the process of removing the samples. The samples are taken to a lab to be checked for prostate cancer. This procedure is usually done to evaluate the prostate gland of men who have raised (elevated) levels of prostate-specific antigen (PSA), which can be a sign of prostate cancer or prostate enlargement related to aging (benign prostatic hyperplasia, or BPH). Tell a health care provider about: Any allergies you have. All medicines you are taking, including vitamins, herbs, eye drops, creams, and uvhy-tty-lhcrule medicines. Any problems you or family members have had with anesthetic medicines. Any bleeding problems you have. Any surgeries you have had. Any medical conditions you have. Any prostate infections you have had. What are the risks? Generally, this is a safe procedure. However, problems may occur, including: Prostate infection. Bleeding from the rectum. Blood in the urine. Allergic reactions to medicines. Damage to surrounding structures such as blood vessels, organs, or muscles. Difficulty passing urine. Nerve damage. This is usually temporary. What happens before the procedure? Medicines Ask your health care provider about: Changing or stopping your regular medicines. This is especially important if you are taking diabetes medicines or blood thinners. Taking medicines such as aspirin and ibuprofen. These medicines can thin your blood. Do not take these medicines unless your health care provider tells you to take them. Taking pktn-bih-hkkfpdc medicines, vitamins, herbs, and supplements. General instructions Follow instructions from your health care provider about eating and drinking. In most instances, you will not need to stop eating and drinking completely before the procedure. You will be given an enema. During an enema, a liquid is injected into your rectum to clear out waste. You may have a blood or urine sample taken. Ask your health care provider what steps will be taken to help prevent infection. These steps may include: ?Washing skin with a germ-killing soap. ?Taking antibiotic medicine. If you will be going home right after the procedure, plan to have a responsible adult: ?Take you home from the hospital or clinic. You will not be allowed to drive. ?Care for you for the time you are told. What happens during the procedure? An IV will be inserted into one of your veins. You will be given one or both of the following: ?A medicine to help you relax (sedative). ?A medicine to numb the area (local anesthetic). You will be placed on your left side, and your knees will be bent toward your chest. A probe with lubricated gel will be placed into your rectum, and images will be taken of your prostate and surrounding structures. Numbing medicine will be injected into your prostate. A biopsy needle will be inserted through your rectum or perineum and guided to your prostate using the ultrasound images. Prostate tissue samples will be removed, and the needle and probe will then be removed. The biopsy samples will be sent to a lab to be tested. The procedure may vary among health care providers and hospitals. What happens after the procedure? Your blood pressure, heart rate, breathing rate, and blood oxygen level will be monitored until you leave the hospital or clinic. You may have some discomfort in the rectal area. You will be given pain medicine as needed. If you were given a sedative during the procedure, it can affect you for several hours. Do not drive or operate machinery until your health care provider says that it is safe. It is up to you to get the results of your procedure. Ask your health care provider, or the department that is doing the procedure, when your results will be ready. Keep all follow-up visits. This is important. Summary A transrectal ultrasound-guided biopsy removes samples of tissue from your prostate using ultrasound-guided sound waves to help guide the process. This procedure is usually done to evaluate the prostate gland of men who have raised (elevated) levels of prostate-specific antigen (PSA), which can be a sign of prostate cancer or prostate enlargement related to aging. After your procedure, you may feel some discomfort in the rectal area. Plan to have a responsible adult take you home from the hospital or clinic, and follow up with your health care provider for your results. This information is not intended to replace advice given to you by your health care provider. Make sure you discuss any questions you have with your health care provider. Document Revised: 01/25/2022 Document Reviewed: 01/25/2022 [employer] Patient Education 2022 Protection Plus. Follow Up Care 12/27/2022 15:19:35 With:Brent CROWELL, Sera Zhang, URL, URO Address: When: Unknown [facility] Medication management note 10-11-2022 Note Date & Type Note Facility 10-11-2022 Note - From: Aracelis Hernandez ([facility] [place] To: Trung Carlin DO; Sent: 10/11/2022 10:49:45 EST Subject: Med Management Caller Name: ARSH MARIE; Caller Number: Kristopher , M Caller is: ( X ) Patient ( ) Mother ( ) Father ( ) Pharmacy ( ) Other: Pharmacy to route Rx to: [facility] [place] Patient's Provider: Reviewed Allergies: ( ) Yes ( ) No Pharmacy: [facility] [place] Comments: 1. Name of Medication: ATORVASTATIN 40mg DAILY Dosage: Dispense: ( ) New ( ) Refill Comment: 2. Name of Medication: LISINOPRIL 10MG DAILY Dosage: Dispense: ( ) New ( ) Refill Comment: 3. Name of Medication: CARVEDILOL 6.25MG BID Dosage: Dispense: ( ) New ( ) Refill Comment: 4. Name of Medication: Dosage: Dispense: ( ) New ( ) Refill Comment: ( ) OK to leave message on voice mail ( ) Patient told to expect return call: ( ) today ( ) tomorrow ( ) next work day ( ) Patient's email ( ) Other: Call back phone # now: until: Call back phone # later: Submitted: Order:lisinopril (Zestril 10 mg oral tablet) 1 tab(s) PO Daily Qty: 90 tab(s) Refills: 3 Route To Pharmacy - [facility]/pharmacy #[id number] Signed by Trung Carlin DO 10/11/2022 11:19:00 EST Submitted: Order:carvedilol (carvedilol 6.25 mg oral tablet) 1 tab(s) PO BID Qty: 180 tab(s) Refills: 3 Substitutions Allowed Route To Pharmacy - [facility]/pharmacy #[id number] Signed by Trung Carlin DO 10/11/2022 11:19:00 EST Documented Discontinue:carvedilol (carvedilol 6.25 mg oral tablet) Signed by Trung Carlin DO 10/11/2022 11:19:00 EST Submitted: Order:atorvastatin (atorvastatin 40 mg oral tablet) 1 tab(s) PO Daily Qty: 90 tab(s) Refills: 3 Route To Pharmacy - [facility]/pharmacy #[id number] Signed by Trung Carlin DO 10/11/2022 11:19:00 EST [facility] Evaluation + Plan note Note Date & Type Note Facility Evaluation + Plan note No data available for this section [facility] Evaluation + Plan note Note Date & Type Note Facility Evaluation + Plan note Future Appointments Appointment Date:02/03/2024 01:00:00 PM Scheduled Provider:Sera Kennedy MD Location:[facility] Appointment Type:URO Office Visit Diagnostic Tests PendingPSA Total 07/01/23PSA Free & Total 07/01/23 [facility] Progress note Note Date & Type Note Facility Progress note No data available for this section [facility] Summary Purpose Family History No Family History Records Found No data available for this section No Family History Records FoundNo Family History Records Found Advance Directives No Advanced Directives Records FoundNo Advanced Directives Records FoundNo Advanced Directives Records Found Additional Source Comments Patient Care team informatio n (unrecognized section and content) Personnel Name: LALA CHINO TRUNG Address: Address: [address] [place] [address] Personnel Name: LALA TRUNG CHINO Address: Address: [address] [place] [address] (unrecognized sect ion and content) No Status Records FoundNo Status Records FoundNo Status Records Found INFORMATION SOURCE (unrecogn ized section and content) DATE CREATED AUTHOR 06/02/2023 [facility] DATE CREATED AUTHOR AUTHOR'S ORGANIZ ATION 07/21/2023 [facility] DATE CREATED AUTHOR AUTHOR'S ORGANIZ ATION 07/26/2023 [facility] FOR RECORDS PERTAINING TO PATIENTS WHO ARE OR HAVE BEEN ENROLLED IN A CHEMICAL DEPENDENCY/SUBSTANCEABUSE PROGRAM, SOME INFORMATION MAY BE OMITTED. This clinical summary was aggregated from multiple sources. Caution should be exercised in using it in the provision of clinical care. This summary normalizes information from multiple sources, and as a consequence, information in this document may materially change the coding, format and clinical context of patient data. In addition, data may be omitted in some cases. CLINICAL DECISIONS SHOULD BE BASED ON THE PRIMARY CLINICAL RECORDS. [facility] [employer] [facility]. provides no warranty or guarantee of the accuracy or completeness of information in this document.
== END 2023-06-22 13:35 | disposition home or self-care (01) ==
PROVIDERS: Visit Provider Urology
PROC: (CPT 55700; principal; 2023-06-22 12:30)
DX: C61 Malignant neoplasm of prostate (principal); R97.20 Elevated prostate specific antigen [PSA]; I25.10 Atherosclerotic heart disease of native coronary artery without angina pectoris; E78.5 Hyperlipidemia, unspecified; I10 Essential (primary) hypertension; Z79.82 Long term (current) use of aspirin; F17.210 Nicotine dependence, cigarettes, uncomplicated; N40.0 Benign prostatic hyperplasia without lower urinary tract symptoms; Z95.5 Presence of coronary angioplasty implant and graft
CPT/HCPCS: 55700; 88305; 88344